=== PATIENT | male | born 1975 | race Caucasian/White ===

== ENCOUNTER 2020-10-20 17:41 | Emergency (ER) | payer OTHER, SELFPAY ==
[2020-10-20 17:42] VITALS: BP 174/107; PULSE 69; RESP 14; TEMP 36.3; O2SAT 100; BMI 20.7
--- NOTE | 2020-10-20 18:34 | ED.VIS.GEN ---
History of Present Illness Chief Complaint: Other, Pain/Inj Informant: Patient Onset: Month(s) Narrative: 45-year-old male presents for the evaluation of difficulty swallowing. This is been an ongoing issue for months. He states he tried to see some doctors [place] but they did not take his insurance and wanted money upfront. He states that continues to be a problem so today he called [facility] starts been and they could not see him for a month and he did not know what to do so they suggested he come to emergency. He states that he is breathing swallowing and speaking normally at the time it is only when he goes to swallow food. He states he has had this problem since he was a teenager and he started to choke on tomatoes. Since then has had intermittent problems with pills. He denies ever having an EGD or swallow study. No known traumatic brain injuries. Past Medical History - Allergies and Home Meds Allergies/Adverse Reactions: Allergies No Known Allergies Allergy (Verified 10/20/20 17:44) Past Medical History: None Surgical History: noncontributory Lives: Spouse/ Significant Other Smoking Status: Former smoker Drugs: None Review of Systems General: Denies: Chills, Fever, Sweats Eyes: Denies: Visual changes - bilaterally, Diplopia ENT: Reports: - - Dysphagia. Denies: Rhinorrhea, Sore throat Cardiovascular: Denies: Chest pain, Palpitations Respiratory: Denies: Dyspnea, Cough, Dyspnea on exertion Gastrointestinal: Denies: Abdominal pain, Nausea, Vomiting, Diarrhea, Melena, Hematochezia Genitourinary: Denies: Dysuria, Hematuria, Frequency Musculoskeletal: Denies: Back pain, Extremity Pain Skin: Denies: Rash, Wounds Neurological: Denies: Headache, Weakness, Numbness Physical Exam Vital Signs/Narrative: Vital Signs Temp Pulse Resp BP Pulse Ox 10/20/20 17:42 97.3 F L 69 14 174/107 H 100 Inital Vital Signs reviewed: Yes General: Well nourished, Well developed, No Acute Distress Head: Normocephalic, Atraumatic Eyes: Perrl, EOMI ENT: Moist mucous membranes, No rhinorrhea Neck: Supple, Nontender Cardiovascular: Regular rate, Regular rhythm, No murmurs Respiratory: No distress, CTA bilaterally, Chest nontender Abdomen: Soft, Nontender, Nondistended, Normal bowel sounds Back: Nontender, Normal Inspection Extremities: Nontender, No edema Skin: Normal color, No rash Neurological: Alert, Oriented x3, Cranial nerves II-XII grossly intact, Normal Strength, Normal Sensation Psychological: Normal affect, Normal Mood Diagnostic/Tx/Re-eval - Medical Decision Making Based on the patient's symptoms I would say he most likely needs a swallow study and possibly EGD. I do not see a need for emergent imaging as he appears quite stable handling his secretions and his phonation is normal. I advised the patient that I would recommend him following up with surgery to discuss an EGD but I do not know what insurance they take. I advised him that the [facility] starts pain clinic would be a good option and he should keep that appointment as they can work with subspecialist at a reduced rate. They could also order a swallow study. Patient's not very happy with this but I tried to explain to him that an EGD and a swallow study in somebody with months of symptoms that is otherwise stable is not any emergent issue. Not only that but it is also 1830 hrs. on Tuesday night. ED Disposition - Plan for ED Patient: Disposition: Home or Assisted Living Diagnosis: Dysphagia Instructions: ED Dysphagia (Adult) Referrals: Tito Mccullough MD [STAFF PHYSICIAN] - (To discuss possible need for EGD) Isela Potter [NON-STAFF] - (I would keep your appointment and discuss possible referral for EGD as well as swallow study.)
== END 2020-10-20 18:54 | disposition home or self-care (01) ==
LOC: ED 18:51
PROVIDERS: Emergency Provider Emergency Medicine
DX: R13.10 Dysphagia, unspecified (principal); Z87.891 Personal history of nicotine dependence
CPT/HCPCS: 99282